=== PATIENT | female | born 1945 | race Caucasian/White ===

== ENCOUNTER 2023-04-05 01:49 | Outpatient (CLI) | payer MEDICARE, SELFPAY ==
--- NOTE | 2023-04-05 07:30 | DI.DEXA_ITS ---
Exam(s) XR DEXA BONE DENSITY W/WO LIZ EXAM: XR DEXA BONE DENSITY W/WO LIZ CLINICAL HISTORY: SCREENING FOR OSTEOPOROSIS IN POSTMENOPAUSAL WOMAN,Z78/0,COMPX FX L1, TECHNIQUE: Routine DEXA evaluation of the lumbar spine, hip, or forearm. COMPARISON: No exams were available for comparison FINDINGS: Performed on a Hologic unit. Lateral image: Not submitted Lumbar Spine total T-score: 0.1 Hip total T-score:-0.6 Independent reading at the level of the femoral neck yields T-score of -1.8 Forearm total T-score: -2.0 IMPRESSION: Bone mineral density measures in the osteopenia range. Fracture risk is moderate. Note: Any spine fracture indicates 5x risk for subsequent spine fracture and 2x risk for subsequent h ip fracture. World Health Organization criteria for BMD interpretation classify patients: Normal...... T- Score at or above -1.0 Osteopenic... T- Score between -1.0 and -2.5 Osteoporosis... T-Score at or below -2.5
== END 2023-04-05 02:09 ==
LOC: DI 01:49
PROVIDERS: PCP Nurse Practitioner; Visit Provider Nurse Practitioner
DX: S32.010A Wedge compression fracture of first lumbar vertebra, initial encounter for closed fracture (principal); Z78.0 Asymptomatic menopausal state; M81.0 Age-related osteoporosis without current pathological fracture
CPT/HCPCS: 77080

== ENCOUNTER 2024-11-10 07:59 | Outpatient (CLI) | payer MEDICARE, SELFPAY ==
--- NOTE | 2024-11-10 07:45 | RT.EKG_ITS ---
APPROVED REPORT Exam: Resting ECG Reason for Exam: afib Patient Location: O HR:62 bpm ECG Measurements Heart Rate 62 AXIS NJ 181 P 0 QRSd 99 QRS -6 QT 421 T -10 QTc 428 Conclusion Atrial fibrillation Low voltage, precordial leads...precordial leads <1.0mV Borderline T abnormalities, inferior leads...T flat/neg, II III aVF
== END 2024-11-10 08:00 | disposition home or self-care (01) ==
LOC: DI.CARD 07:59
PROVIDERS: PCP Nurse Practitioner; Visit Provider Registered Nurse
DX: I48.91 Unspecified atrial fibrillation (principal)
CPT/HCPCS: 93010

== ENCOUNTER → 2024-11-10 10:58 | Outpatient (BNVA) | payer MEDICARE, SELFPAY | PROVIDERS: PCP Nurse Practitioner; Referring Provider Nurse Practitioner; Visit Provider Registered Nurse | DX: I48.91 Unspecified atrial fibrillation (principal) | CPT/HCPCS: 93005; 99203 ==